=== PATIENT | female | born 1980 | race African-American/Black ===

== ENCOUNTER 2016-03-17 02:47 | Emergency (ER) | payer MEDICAID ==
[~2016-03-17] VITALS: Ht 177.8 cm; Wt 90.7 kg
[~2016-03-17 02:47] MED LIST: AZITHROMYCIN250 MG ORAL; IBUPROFEN600 MG ORAL; PROMETHAZINE-C118 M1 ORAL
[2016-03-17] MEDS ORDERED: ADDERAL PO (03:00)
[2016-03-17] MEDS ORDERED: BIRTH CONTROL PILLS (03:01)
--- NOTE | 2016-03-17 03:24 | Emergency Room Report ---
History of Present Illness General Chief Complaint: Upper Respiratory Illness Source: Patient Present Illness [facility] This is a 35-year-old female with no significant past medical history. She presents with chief complaint of coughing and short of breath. The last few days she's been having congestion and runny nose. Has been getting worse tonight. Worse with a deep breath. Worse when she lay flat. Can't catch her breath. No fever or chills. no nausea no vomiting. Allergies: Coded Allergies: No Known Allergies (Unverified , 04/08/15) Patient History Past Medical History: none, see triage record, old chart reviewed Past Surgical History: none Pertinent Family History: none Social History: Denies: smoking Last Menstrual Period: 28 days ago Now: No Immunizations: other Reviewed Nursing Documentation: PMH: Agreed, PSxH: Agreed Nursing Documentation-PMH Hx Asthma: Yes Hx Neurological Problems: Yes - MIGRAINE Review of Systems Eye: Denies: blurred vision, eye pain ENT: Reports: nose congestion, Denies: ear pain, throat swelling Respiratory: Reports: cough, shortness of breath, wheezing Cardiovascular: Denies: chest pain, palpitations Gastrointestinal: Denies: abdominal pain, diarrhea, nausea, vomiting Musculoskeletal: Denies: back pain, joint pain Skin: Denies: rash Neurological: Denies: headache, numbness Endocrine: Denies: increased thirst, increased urine Hematologic/Lymphatic: Denies: easy bruising All Other Systems: negative except mentioned in HPI Physical Exam Vital Signs Date Time Temp Pulse Resp B/P Pulse Ox O2 Delivery O2 Flow Rate FiO2 03/17/16 02:49 98.2 74 16 120/74 100 Room Air vitals normal Sp02 EP Interpretation: reviewed, normal General Appearance: well appearing, no apparent distress, alert Head: normocephalic, atraumatic Eyes: bilateral eye EOMI, bilateral eye PERRL ENT: hearing grossly normal, normal pharynx, other - Bilateral TMs with fluid behind it. Neck: full range of motion, supple, no meningismus Respiratory: chest non-tender, lungs clear, decreased breath sounds, other - Coughing fits with inspiration. Cardiovascular #1: regular rate, rhythm, no murmur Gastrointestinal: normal bowel sounds, non tender, no mass, no organomegaly, no bruit, non-distended Musculoskeletal: back normal, gait/station normal, normal range of motion Neurologic: alert, oriented x3 Psychiatric: mood/affect normal Skin: warm/dry Medical Decision Making Diagnostic Impression: Primary Impression: URI (upper respiratory infection) Qualified Codes: J06.9 - Acute upper respiratory infection, unspecified; B97.89 - Other viral agents as the cause of diseases classified elsewhere Additional Impression: Acute bronchospasm due to viral infection ER Course She was URI infection with bronchospasm. She felt better after nebulizer treatment. Able to take a deep breath without coughing. We'll discharge home. No evidence of pneumonia, PE, dissection to name a few. Last Vital Signs Date Time Temp Pulse Resp B/P Pulse Ox O2 Delivery O2 Flow Rate FiO2 03/17/16 03:06 74 16 Room Air 03/17/16 02:49 98.2 120/74 100 Status: improved Disposition: HOME, SELF-CARE Condition: Stable Scripts Pseudoephedrine Hcl* (NEXAFED*) 30 Mg Tablet 30 MG ORAL Q6H Y for congestion, #20 TAB Prov: MARGO BOB M.D. 03/17/16 Prednisone* (PREDNISONE*) 20 Mg Tablet 60 MG ORAL DAILY, #12 TAB Prov: MARGO BOB M.D. 03/17/16 Albuterol Sulfate* (ALBUTEROL SULFATE MDI*) 8.5 Gm Hfa.aer.ad 2 PUFF INH Q4H Y for cough/wheezing, #1 EA 0 Refills Prov: MARGO BOB M.D. 03/17/16 Patient Instructions: Upper Respiratory Infection, Adult Additional Instructions: Followup with your DrMoncho 2 to 3 days. Return if symptom worsen. MARGO BOB M.D. Mar 17, 2016 03:24
[2016-03-17] MEDS ORDERED: Ipratropium 0.02% Inh Soln 2.5ml UD HHN ONE (03:30)
[2016-03-17] MEDS ORDERED: Albuterol ud Inhalation HHN ONE (03:30)
[2016-03-17] MEDS ORDERED: PredniSONE 20mg tab ORAL ONE (03:30)
[2016-03-17] MEDS ORDERED: NEXAFED30 MG ORAL (03:55)
[2016-03-17] MEDS ORDERED: PREDNISONE20 MG ORAL (03:55)
[2016-03-17] MEDS ORDERED: ALBUTEROL SULF8.5 GM INH (03:55)
[2016-03-17 04:23] VITALS: BP 119/72
[2016-03-17 04:24] VITALS: BP 119/72
== END 2016-03-17 04:25 | disposition home or self-care (01) ==
LOC: EMR 03:25
DX: J06.9 Acute upper respiratory infection, unspecified (principal); J20.8 Acute bronchitis due to other specified organisms; Z87.09 Personal history of other diseases of the respiratory system
CPT/HCPCS: 94640; 94664; 99284

== ENCOUNTER 2017-09-12 22:57 | Emergency (ER) | payer MEDICAID ==
[~2017-09-12] VITALS: Ht 177.8 cm; Wt 90.7 kg
[~2017-09-12 22:57] MED LIST changes: +ADDERAL PO; +ALBUTEROL SULF8.5 GM INH; +BIRTH CONTROL PILLS; +DOXYCYCLINE MO100 MG ORAL; +NEXAFED30 MG ORAL; +PREDNISONE20 MG ORAL
[2017-09-12 23:00] VITALS: BP 111/72
[2017-09-12] MEDS ORDERED: ADDERAL20 MG ORAL (23:05)
[2017-09-12] MEDS ORDERED: BACTRIM DS TAB1 EAC1 ORAL (23:49)
--- NOTE | 2017-09-12 23:50 | Emergency Room Report ---
History of Present Illness General Chief Complaint: Skin Rash/Abscess Source: Patient Present Illness HPI Is a 36-year-old female with history of Bartholin's cyst abscess. She presents with chief complaint of Bartholin's cyst abscess this been there for a few days. The minimal drainage at home. No fever chills but no nausea no vomiting. Pain is 8 out of 10. Worse with movement and palpation. Better with rest. Rui symptom in the past. Unable to see a soils engineer because of insurance issue. Allergies: Coded Allergies: No Known Allergies (Unverified , 04/08/15) Patient History Past Medical History: see triage record, old chart reviewed Past Surgical History: none Pertinent Family History: none Social History: Denies: smoking Last Menstrual Period: 09/08/2017 Now: No Immunizations: other Reviewed Nursing Documentation: PMH: Agreed; PSxH: Agreed Nursing Documentation-PMH Hx Asthma: Yes Review of Systems Eye: Denies: eye pain, blurred vision ENT: Denies: ear pain, nose congestion, throat swelling Respiratory: Denies: cough, shortness of breath Cardiovascular: Denies: chest pain, palpitations Gastrointestinal: Denies: abdominal pain, diarrhea, nausea, vomiting Musculoskeletal: Denies: back pain, joint pain Skin: Denies: rash Neurological: Denies: headache, numbness Endocrine: Denies: increased thirst, increased urine Hematologic/Lymphatic: Denies: easy bruising All Other Systems: negative except mentioned in HPI Physical Exam Vital Signs Date Time Temp Pulse Resp B/P (MAP) Pulse Ox O2 Delivery O2 Flow Rate FiO2 09/12/17 22:59 98.6 101 16 111/72 98 98.6 09/12/17 23:00 Room Air vitals normal Sp02 EP Interpretation: reviewed, normal General Appearance: well appearing, no apparent distress, alert Head: normocephalic, atraumatic Eyes: bilateral eye PERRL, bilateral eye EOMI ENT: hearing grossly normal, normal pharynx Neck: full range of motion, supple, no meningismus Respiratory: chest non-tender, lungs clear, normal breath sounds Cardiovascular #1: regular rate, rhythm, no murmur Gastrointestinal: normal bowel sounds, non tender, no mass, no organomegaly, no bruit, non-distended Genitourinary: other - Exam done with Alka Toussaint RN, as power press tender. There is a fluctuant area of about 3 cm on the left labia area. Musculoskeletal: back normal, gait/station normal, normal range of motion Neurologic: alert, oriented x3 Psychiatric: mood/affect normal Skin: warm/dry Procedures Incision and Drainage Incision and Drainage : Consent: Verbal Site: pelvic Blade Size: 11 I & D Procedure: betadine prep Wound Location: pelvis Anesthesia: 1% Lidocaine Volume Anesthetic (ccs): 2 Patient Tolerated: Well Complications: None Progress I made a was some incision over the most fluctuant area of the Bartholin abscess. There was copious amount of pus expressed. Using a Noemi forcep I explored the area and there was more pus expressed. Patient tolerated procedure without a problem. Medical Decision Making Diagnostic Impression: Primary Impression: Bartholin's gland abscess ER Course Patient presents with abrupt complaint abscess. No evidence of deep infection. We'll discharge home. She may need marsupialization of the gland. This will be done by COMPOSITION WORKER. Last Vital Signs Date Time Temp Pulse Resp B/P (MAP) Pulse Ox O2 Delivery O2 Flow Rate FiO2 09/12/17 23:00 98.6 101 16 111/72 98 Room Air 98.6 Status: improved Disposition: HOME, SELF-CARE Condition: Stable Scripts Trimethoprim/Sulfamethoxazole 160/800* (BACTRIM DS TABLET*) 1 Each Tablet 1 TAB ORAL Q12H, #14 TAB 0 Refills Prov: MARGO BOB M.D. 09/12/17 Additional Instructions: Follow-up with your doctor in 7 days for recheck. Return if symptom worsen. You may benefit from referral to see a soils engineer. MARGO BOB M.D. Sep 12, 2017 23:50
[2017-09-12 23:53] VITALS: BP 111/72
== END 2017-09-12 23:55 | disposition home or self-care (01) ==
LOC: EMR 23:30
DX: N75.0 Cyst of Bartholin's gland (principal); J45.909 Unspecified asthma, uncomplicated
CPT/HCPCS: 10060; 99283

== ENCOUNTER 2020-02-20 14:11 | Emergency (ER) | payer MEDICAID ==
[~2020-02-20] VITALS: Ht 177.8 cm; Wt 108.9 kg
[~2020-02-20 14:11] MED LIST changes: +ADDERAL20 MG ORAL; +BACTRIM DS TAB1 EAC1 ORAL
[2020-02-20 15:30] VITALS: BP 117/76
[2020-02-20] MEDS ORDERED: Tetanus/Diptheria/Pertussis IM ONE (15:30)
--- NOTE | 2020-02-20 15:30 | NUR ---
ED Nurse Note: Pt walked into ED for R hand laceration from 2 days ago. Laceration is on R hand middle finger, minimal bleeding. Pt is alert and orientedx4, ambulatory. She denies bodyaches, chills, fever, nausea, vomiting.
--- NOTE | 2020-02-20 16:10 | NUR ---
ED Nurse Note: Pt R middle finger has tingling, ROM 2/5.
--- NOTE | 2020-02-20 16:33 | Emergency Room Report ---
History of Present Illness General Chief Complaint: Laceration Source: Patient Present Illness HPI 39 YO female presents to the ED C/O 10/16 in severity right hand pain with laceration x 1 day. Pt. reports sustaining laceration when she set down a xena jar to hard on the counter it broke and a large piece of glass punctured her right middle finger. Pt. reports being right hand dominant. Pt. reports pain and inability to make a fist/ bend the right middle finger. Pt. reports hx of ADHD and migraines. She denies or taking blood thinning medications. Pt .denies paresthesias. Pt. reports bleeding has slowed at this time. Pt reports she is not sure when her last tetanus vaccination was. Pain is exacerbated with movement of the right hand, and with palpation. No other aggravating or relieving factors at this time. 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 COVID-19 Screening: Positive COVID-19 COVID-19 Testing Source: 02/01/20 Patient History Past Medical History: see triage record Past Surgical History: none Pertinent Family History: none Now: No Reviewed Nursing Documentation: PMH: Agreed; PSxH: Agreed Nursing Documentation-PMH Past Medical History: No History, Except For Hx Asthma: Yes Review of Systems All Other Systems: negative except mentioned in HPI Physical Exam Vital Signs Date Time Temp Pulse Resp B/P (MAP) Pulse Ox O2 Delivery O2 Flow Rate FiO2 02/20/20 14:30 98.1 85 16 120/70 (87) 98 Room Air Sp02 EP Interpretation: reviewed, normal General Appearance: no apparent distress, alert, GCS 15, non-toxic Head: normocephalic, atraumatic Eyes: bilateral eye normal inspection, bilateral eye PERRL ENT: hearing grossly normal, normal voice Neck: full range of motion Respiratory: chest non-tender, lungs clear, normal breath sounds, speaking full sentences Cardiovascular #1: regular rate, rhythm, no edema Gastrointestinal: normal bowel sounds, non tender, soft Rectal: deferred Genitourinary: normal inspection Musculoskeletal: gait/station normal, tender - right middle finger ttp. , other - Right middle finger laceration approx 0.40 cm in length at the right third metacarpal joint. The wound is not gaping and does not extend down into the subcutaneous tissues. No visible tendon involvement. with passive flexion and quick release the RMF slowly returns to the straightened position. Finger is not hyperextended. normal Cap refill. Normal sensation. Neurologic: alert, motor strength/tone normal, oriented x3, sensory intact, responsive, speech normal Psychiatric: judgement/insight normal Lymphatic: no adenopathy Procedures Laceration/Wound Repair Laceration/Wound Repair : Consent: Verbal Wound Location: upper extremity Wound's Depth, Shape: superficial Wound Explored: clean Irrigated w/ Saline (ccs): 200 Anesthesia: 1% Lidocaine Volume Anesthetic (ccs): 3 Wound Repaired With: Dermabond Sterile Dressing Applied?: No Splint Applied?: Yes Type of Splint Applied: Right middle finger splint Sling Applied?: No Patient Tolerated: Well Complications: None Medical Decision Making PA Attestation Dr. Mary is my supervising Physician whom patient management has been discussed with. Diagnostic Impression: Primary Impression: Laceration of finger Qualified Codes: S61.212A - Laceration without foreign body of right middle finger without damage to nail, initial encounter Additional Impression: Injury of finger Qualified Codes: S69.91XA - Unspecified injury of right wrist, hand and finger(s), initial encounter ER Course 39 YO female presents to the ED C/O 10/16 in severity right hand pain with laceration x 1 day. Pt. reports sustaining laceration when she set down a xena jar to hard on the counter it broke and a large piece of glass punctured her right middle finger. Pt. reports being right hand dominant. Pt. reports pain and inability to make a fist/ bend the right middle finger. Pt. reports hx of ADHD and migraines. She denies or taking blood thinning medications. Pt .denies paresthesias. Pt. reports bleeding has slowed at this time. Pt reports she is not sure when her last tetanus vaccination was. Pain is exacerbated with movement of the right hand, and with palpation. No other aggravating or relieving factors at this time. Ddx considered but are not limited to laceration, tendon injury, cellulitis, amputation. Vital signs: are WNL, pt. is afebrile. H&PE are most consistent with: Right middle finger laceration approx 0.40 cm in length at the right third metacarpal joint. The wound is not gaping and does not extend down into the subcutaneous tissues. ORDERS: none required at this time, the diagnosis is clinical ED INTERVENTIONS: - Tylenol # 3 PO -Tetanus vaccine was administered as pt. vaccination status was unknown. - The wound was copiously irrigated with normal saline, and explored for foreign body for which no FB was found. -X-ray right hand 3 views: no visible radiopaque fb noted. - pt. is anesthetized with 1%lidocaine plane injected at the base of the RMF. - The wound was closed using derma-lopez. -Bacitracin and sterile dressing is applied. Pain and decreased RMF finger Flexion is out of proportion to extent of visible injury to the overlying soft/tissues skin. Laceration is superficial and does not extend through subcutaneous tissues extensive examination and attempts to open the wound still produces the same results. Discussed with patient: That we make every effort to approximate the laceration as best as we can so that scarring will be as cosmetically pleasing as possible with our limited cosmetic skill set in the Emergency dept. Regardless of our best efforts there will be scarring after laceration repair. The extent of scarring is unknown at this time. d/w pt. follow up with hand specialist for tendon injury eval if symptoms of inability to flex the RMF persist. DISCHARGE: At this time pt. is stable for d/c to home. Will provide printed pat ient care instructions, and any necessary prescriptions. Care plan and follow up instructions have been discussed with the patient prior to discharge. Other X-Ray Diagnostic Results Other X-Ray Diagnostic Results : X-Ray ordered: Right hand # of Views/Limited Vs Complete: 3 View Indication: Pain EP Interpretation: Yes LEXIS Xray: Interpretation reviewed, by supervising MD, and agrees with findings. Interpretation: no dislocation, no soft tissue swelling, no fractures Impression: No acute disease Electronically Signed by: Dede Alejo PA-C Last Vital Signs Date Time Temp Pulse Resp B/P (MAP) Pulse Ox O2 Delivery O2 Flow Rate FiO2 02/20/20 15:30 98.1 76 18 117/76 99 Room Air Status: improved Disposition: HOME, SELF-CARE Condition: Stable Scripts Ibuprofen* (MOTRIN*) 600 Mg Tablet 600 MG ORAL THREE TIMES A DAY, #20 TAB Prov: Dede Alejo 02/20/20 Cephalexin* (KEFLEX*) 500 Mg Capsule 500 MG ORAL EVERY 12 HOURS for 7 Days, #14 CAP 0 Refills Prov: Dede Alejo 02/20/20 Referrals: [facility],REFERRING (PCP) Brennan [facility] Patient Instructions: Nonsutured Laceration Care Additional Instructions: ~ ~ An emergent medical condition has not been identified based on this patients presentation, exam and any necessary testing/imaging. The patient is determined to be stable for outpatient follow-up and management of symptoms by a primary care provider. Take medications as directed. Follow up with a Primary Care Provider in 3-5 days, even if your symptoms have resolved. If your symptoms persist Follow up with Hand Specialist to evaluate your tendon. --Please review list of primary care clinics, if you do not already have a primary care provider Return sooner to ED if new symptoms occur, or current symptoms become worse. - Please note that this Emergency Department Report was dictated using [employer] technology software, occasionally this can lead to erroneous entry secondary to interpretation by the dictation equipment. Dede Alejo Feb 20, 2020 16:33
[2020-02-20] MEDS ORDERED: IBUPROFEN600 M1 ORAL (16:44)
[2020-02-20] MEDS ORDERED: CEPHALEXIN500 MG ORAL (16:44)
[2020-02-20] MEDS ORDERED: Tylenol #3 tab (300mg/30mg) ORAL ONE (16:45)
--- NOTE | 2020-02-20 16:58 | Diagnostic Imaging Report ---
Indication: Right hand pain Technique: 3 views right hand Comparison: None Findings: Gas bubbles are seen within the lumbar soft tissues overlying the third metacarpal as well as within the third web space. No acute fracture. No dislocation. No radiopaque foreign body Impression: Soft tissue gas. Per discussion with ER nurse practitioner, patient had a laceration in this location. No acute bony trauma or radiopaque foreign body
[2020-02-20 18:04] VITALS: BP 113/72
--- NOTE | 2020-02-20 18:05 | NUR ---
ER DISCHARGE NOTE: Patient is cleared to be discharged per ERMD, pt is aox4, on room air, with stable vital signs. pt was given dc and prescription instructions, pt was able to verbalize understanding, pt id band removed. pt is able to ambulate with steady gait. pt took all belongings. Pt provided COVID d/c packet.
== END 2020-02-20 18:06 | disposition home or self-care (01) ==
LOC: EMR 15:05
DX: S61.212A Laceration without foreign body of right middle finger without damage to nail, initial encounter (principal); J45.909 Unspecified asthma, uncomplicated; F90.9 Attention-deficit hyperactivity disorder, unspecified type; W25.XXXA Contact with sharp glass, initial encounter; Y93.89 Activity, other specified; Y92.9 Unspecified place or not applicable; Z86.16 Personal history of COVID-19
CPT/HCPCS: 12001; 73130; 90471; 90715; Z7502; 99283